=== PATIENT | female | born 1990 | race Caucasian/White ===

== ENCOUNTER 2021-03-23 19:50 | Emergency (ER) | payer OTHER ==
[~2021-03-23] VITALS: Ht 162.6 cm; Wt 53.1 kg
[2021-03-23 19:50] VITALS: BP 115/71
== END 2021-03-23 21:35 | disposition left against medical advice (07) ==
LOC: MED 19:50
DX: R53.1 Weakness (principal); R07.9 Chest pain, unspecified; R50.9 Fever, unspecified; F12.10 Cannabis abuse, uncomplicated; F32.9 Major depressive disorder, single episode, unspecified
CPT/HCPCS: 99283

== ENCOUNTER 2022-06-12 20:00 | Emergency (ER) | payer OTHER ==
[~2022-06-12] VITALS: Ht 162.6 cm; Wt 54.4 kg
[2022-06-12 20:19] VITALS: BP 100/78
== END 2022-06-12 21:26 | disposition left against medical advice (07) ==
LOC: MED 20:00
DX: H57.10 Ocular pain, unspecified eye (principal); Z53.21 Procedure and treatment not carried out due to patient leaving prior to being seen by health care provider